=== PATIENT | female | born 1980 | race Caucasian/White ===

== ENCOUNTER 2018-02-28 10:35 | Emergency (ER) | payer OTHER, SELFPAY ==
[2018-02-28 16:01] LABS: Clarity Sl Cloudy; Glucose Negative (Negative); Ketones Negative (Negative); Leukocyte Esterase Large (Negative); Nitrite Negative (Negative); Specific Gravity 1.015 (1.005-1.025); Urobilinogen 0.2 EU/dL (Up TO 0.2); pH 7.5 (5-8)
[2018-02-28 16:02] LABS: Bilirubin Negative (Negative); Blood Moderate (Negative)
[2018-02-28 16:04] LABS: WBC >50 HPF (0-5)
[2018-02-28 16:05] LABS: C & S Indicated? Yes
--- NOTE | 2018-03-02 15:57 | W.ED.FU ---
Called and verified with patient she did receive her antibiotic and taking twice a day. She reports she is tolerating and doing well.
== END 2018-02-28 12:02 | disposition home or self-care (01) ==
PROVIDERS: Emergency Provider Emergency Medicine
DX: N39.0 Urinary tract infection, site not specified (principal); B96.20 Unspecified Escherichia coli [E. coli] as the cause of diseases classified elsewhere
CPT/HCPCS: 81025; 87077; 99283; 81003; 81015; 87086; 87186